=== PATIENT | female | born 2000 ===

== ENCOUNTER 2024-02-20 10:46 | Outpatient (CLI) | payer OTHER | END 2024-02-20 10:50 | disposition home or self-care (01) | LOC: PRENATAL 10:46 | PROVIDERS: ATTEND Obstetrics & Gynecology Maternal & Fetal Medicine | DX: O44.00 Complete placenta previa NOS or without hemorrhage, unspecified trimester (principal); O36.1999 Maternal care for other isoimmunization, unspecified trimester, other fetus; Z3A.23 23 weeks gestation of pregnancy ==

== ENCOUNTER → 2024-04-23 09:26 | Outpatient (CLI) | payer OTHER | END | disposition home or self-care (01) | LOC: PRENATAL 09:26 | PROVIDERS: ATTEND Obstetrics & Gynecology Maternal & Fetal Medicine | DX: O26.849 Uterine size-date discrepancy, unspecified trimester (principal); O36.8199 Decreased fetal movements, unspecified trimester, other fetus; O36.1999 Maternal care for other isoimmunization, unspecified trimester, other fetus; O99.019 Anemia complicating pregnancy, unspecified trimester; Z3A.32 32 weeks gestation of pregnancy ==

== ENCOUNTER → 2024-05-20 08:24 | Outpatient (CLI) | payer OTHER | END | disposition home or self-care (01) | LOC: PRENATAL 08:24 | PROVIDERS: ATTEND Obstetrics & Gynecology Maternal & Fetal Medicine | DX: Z76.1 Encounter for health supervision and care of foundling (principal) ==

== ENCOUNTER 2024-06-05 16:05 | Inpatient (IN) | payer OTHER ==
[~2024-06-05] VITALS: Ht 147.3 cm; Wt 67.6 kg
[2024-06-05 16:31] VITALS: BP 132/88
[2024-06-05] MEDS ORDERED: IRON236 MG PO (17:03)
[2024-06-05] MEDS ORDERED: PRENATAL TABLE1 EAC1 PO (17:03)
[2024-06-05 17:32] LABS: HEMATOCRIT 31.2 % (36.0-45.00); HEMOGLOBIN 10.5 g/dL (12.0-15.00); MEAN CELL VOLUME 83.7 fL (80.00-100.00); MEAN CORPUSCULAR HEMOGLOBIN 28.3 pg (27.00-32.0); MEAN CORPUSCULAR HGB CONC 33.8 g/dl (32.0-36.0); PLATELET COUNT 195 K/uL (150-450); RED BLOOD COUNT 3.73 M/uL (4.00-6.00); RED CELL DISTRIBUTION WIDTH 17.7 % (11.5-14.5)
[2024-06-05 17:33] LABS: PH,URINE 6.5 (5.0-8.0); URINE APPEARANCE Clear; URINE BILIRRUBIN Negative (NEGATIVE); URINE BLOOD Negative; URINE COLOR Yellow; URINE GLUCOSE Negative (NEGATIVE); URINE KETONE Negative (NEGATIVE); URINE LEUKOCYTE Trace; URINE NITRATE Negative; URINE PROTEIN Negative (NEGATIVE)
[2024-06-05 17:36] LABS: URINE BACTERIA 518.7 uL (0.0-1933); URINE RBC 2.5 uL (0.0-20.8); URINE WBC 14.5 uL (0.0-23.2)
[2024-06-05 18:02] LABS: INR < 0.93; PROTHROMBIN TIME 9.4 SECONDS (9.0-11.5)
[2024-06-05 18:17] LABS: ALBUMIN 2.8 gm/dL (3.4-5.0); BILIRUBIN TOTAL 0.26 mg/dL (0.3-1.2); CALCIUM 8.9 mg/dL (8.5-10.1); CREATININE SERUM 0.55 mg/dL (0.55-1.02); GFR 134.67; GLOBULINA 3.8 G/DL (2.4-3.5); POTASSIUM 4.3 mEq/L (3.5-5.1); TOTAL PROTEIN 6.6 gm/dL (6.4-8.2)
[2024-06-05 19:46] VITALS: BP 120/67
[2024-06-05] MEDS ORDERED: RINGERS SOLUTION,LACTATED 1,000 ML IV SCH (20:30)
[2024-06-05 23:21] VITALS: BP 135/78
[2024-06-06 03:24] VITALS: BP 121/65
[2024-06-06] MEDS ORDERED: OXYTOCIN 500 ML IV SCH (03:30)
[2024-06-06] MEDS ORDERED: MORPHINE SULFATE 4 MG/ML CARTRIDGE IV ONE (04:30)
[2024-06-06 07:39] VITALS: BP 134/86
[2024-06-06] MEDS ORDERED: IBUprofen 400 MG TABLET PO PRN (12:15)
[2024-06-06] MEDS ORDERED: CHLORHEXIDINE GLUCONATE 120 ML BOTTLE TP SCH (12:15)
[2024-06-06] MEDS ORDERED: ACETAMINOPHEN 500 MG GEL..CAP PO PRN (12:15)
[2024-06-06] MEDS ORDERED: OXYTOCIN 1,000 ML IV SCH (12:15)
[2024-06-06] MEDS ORDERED: LIDOCAINE HCL 1% 10ML VIAL PERCUT ONE (13:30)
[2024-06-06] MEDS ORDERED: ERYTHROMYCIN BASE OPHT 1GM EACH TUBE OP ONE (13:30)
[2024-06-06] MEDS ORDERED: BENZOCAINE/MENTHOL 90 ML BOTTLE TOP SCH (14:00)
[2024-06-06 15:50] VITALS: BP 124/68
[2024-06-06 16:45] VITALS: BP 117/74
[2024-06-06] MEDS ORDERED: DOCUSATE SODIUM 100MG CAP PO SCH (17:00)
[2024-06-07 01:20] VITALS: BP 128/87
[2024-06-07 08:00] VITALS: BP 121/84
[2024-06-07 16:21] VITALS: BP 120/80
[2024-06-08] VITALS: BP 97/62
[2024-06-08 07:57] VITALS: BP 116/79
[2024-06-08] MEDS ORDERED: NAPR500T14 PO (11:22)
[2024-06-08] MEDS ORDERED: FF) RHO(D) IMMUNE GLOBULIN (POM) IM ONE (14:15)
== END 2024-06-08 13:56 | disposition home or self-care (01) | DRG 806 ==
LOC: LDR 16:05 → OB/GYN 06-06 13:25
PROVIDERS: ADMIT Obstetrics & Gynecology; ATTEND Obstetrics & Gynecology
PROC: 4A1HXCZ Monitoring of Products of Conception, Cardiac Rate, External Approach (ICD-10-PCS; 2024-06-05)
PROC: 10E0XZZ Delivery of Products of Conception, External Approach (ICD-10-PCS; principal; 2024-06-06)
PROC: 0KQM0ZZ Repair Perineum Muscle, Open Approach (ICD-10-PCS; 2024-06-06)
DX: O70.1 Second degree perineal laceration during delivery (principal); O41.03X0 Oligohydramnios, third trimester, not applicable or unspecified; Z37.0 Single live birth; Z3A.38 38 weeks gestation of pregnancy